=== PATIENT | male | born 1950 | race Caucasian/White ===

== ENCOUNTER 2016-10-24 08:51 | Inpatient (IN) | payer OTHER ==
[2016-10-24] MEDS ORDERED: CEFAZOLIN 1 GM VIAL ONE (09:34)
[2016-10-24 09:38] LABS: BLOOD UREA NITROGEN 16 MG/DL (9-20); CALCULATED OSMOLALITY 270 MOs/Kg (270-290); CHLORIDE 100 mEq/L (98-107); GLUCOSE 106 mg/dL (70-99); SODIUM LEVEL 140 mEq/L (137-146)
[2016-10-24] MEDS ORDERED: ONDANSETRON HCL 4 MG ODT TAB PO PRN (09:41)
[2016-10-24] MEDS ORDERED: LABETALOL 20 MG/4 ML SYRINGE IV PRN (09:41)
[2016-10-24] MEDS ORDERED: MEPERIDINE 25 MG/ML TUBEX IV PRN (09:41)
[2016-10-24] MEDS ORDERED: FENTANYL 100 MCG/2 ML VIAL IV PRN ×2 (09:41)
[2016-10-24] MEDS ORDERED: ONDANSETRON HCL 4 MG/2 ML VIAL IV PRN ×2 (09:41→12:43)
[2016-10-24] MEDS ORDERED: hydrALAZINE 20 MG/ML VIAL IV PRN (09:41)
[2016-10-24] MEDS ORDERED: HYDROmorphone 1 MG INJECTION IV PRN ×3 (09:41→12:43)
--- NOTE | 2016-10-24 09:55 | HIM.ANES ---
Anesthesia Evaluation & Plan Diagnoses: UNILATERAL PRIMARY OSTEOARTHRITIS, LEFT KNEE (10/24/16) Consented Procedure: LEFT TOTAL KNEE ARTHROPLASTY - Focused Review of Systems Cardiac History: Yes: Hx Hypertension, Hx Afib/Aflutter (RESOLVED), Hx Cardiac Disorders, Hx Abnormal Cholesterol/Hyperlipidemia HEENT: Yes: Hx Vision Problem (PRESCRIPTION GLASSES FOR DRIVING), Other HEENT Problems Hx Other HEENT Surgery: LEFT EYE SX TO CORRECT LAZY EYE 10/1996 Hx Other HEENT Problems: SEASONAL ALLERGIES Gastrointestinal: Yes: Hx Gastroesophageal Reflux Disease (USES PROTONIX NEEDED), Hx Colonoscopy (2012 NORMAL) Neurological/Musculoskeletal: No: Hx Neurological Disorders Psychological: Yes Hx Anxiety, Yes Hx Depression, Yes Hx Mental/Emotional Disorders Blood/Autoimmune: No: Hx AIDS, Hx Hepatitis (type) Smoking Status: Never smoker Surgical History: Yes: Knee (LT MENISCUS REPAIR 01/2016) Other Surgical History: LEFT EYE SX TO CORRECT LAZY EYE 10/1996 - Focused Physical Exam NPO since: 10/23/16 2100 Mallampati: Class II Thyromental Distance: Greater than 3 Neck: Full Range of Motion Dental: Normal - no significant findings Cardiovascular/Chest: Normal Respiratory: Lungs clear Any problems with anesthesia, including nausea and vomiting?: No Any relatives with a history of Malignant Hyperthermia?: No Does the patient have a history of Motion Sickness-: Yes Other: CBC/BMP/Other 10/24/16 09:12 Allergies Allergy/AdvReac Type Severity Reaction Status Date / Time celecoxib [From Celebrex] Allergy A-FIB Verified 10/24/16 09:39 codeine Allergy Nausea/Vomi Verified 10/24/16 09:39 ting meloxicam [From Mobic] Allergy AFIB Verified 10/24/16 09:39 Home Medications Medication Instructions Recorded Last Taken Type Doxycycline Hyclate [Vibramycin] 100 mg PO .EVERYOTHERDAY 01/25/16 09/28/16 History Ibuprofen Tablet [Motrin] 800 mg PO TID PRN 01/25/16 Unknown History Pantoprazole Sodium [Protonix] 40 mg PO DAILY PRN 01/25/16 Unknown History Aspirin [Aspirin EC] 325 mg PO DAILY 09/29/16 Unknown History Cholecalciferol (Vitamin D3) 1,000 unit PO DAILY 09/29/16 Unknown History [Vitamin D3] Diltiazem HCl [Cardizem] 30 mg PO Q6 PRN 09/29/16 Unknown History Dutasteride/Tamsulosin HCl [Estela 1 each PO DAILY PRN 09/29/16 Unknown History 0.5-0.4 mg Capsule] Fish Oil/Dha/Epa [Fish Oil 1,200 1 each PO DAILY 09/29/16 Unknown History mg Fish Oil] Ginkgo Biloba 120 mg PO DAILY 09/29/16 Unknown History Glucosamine HCl 1,500 mg PO DAILY 09/29/16 Unknown History Hydroxytryptophan 1 tab PO BID 09/29/16 Unknown History Melatonin 6 mg PO HS 09/29/16 Unknown History Methyl B12 1 tab PO DAILY 09/29/16 Unknown History Mv-Mn/FA/Vit K/Lycop/Lut/Zeaxa 1 each PO DAILY 09/29/16 Unknown History [Ocuvite Eye + Multi Tablet] Pyridoxine HCl [Vitamin B-6] 50 mg PO BID 09/29/16 Unknown History Pyridoxine HCl [Vitamin B-6] 100 mg PO BID 09/29/16 Unknown History Red Yeast Rice 600 mg PO EVENING 09/29/16 Unknown History Saw Pegram Xtr/Zinc Picolin [Saw 320 each PO DAILY 09/29/16 Unknown History Pegram Capsule] Sero Trex 1 - 2 tab PO DAILY 09/29/16 Unknown History Tadalafil [Cialis] 5 mg PO DAILY 09/29/16 Unknown History Tadalafil [Cialis] 5 mg PO DAILY PRN 09/29/16 Unknown History Tri-Iodine 12.5 mg PO DAILY 09/29/16 Unknown History Tyrosine [l-Tyrosine] 500 mg PO DAILY 09/29/16 Unknown History Vitamin E 400 unit PO DAILY 09/29/16 Unknown History Carvedilol [Coreg] 6.25 mg PO BID 10/19/16 Unknown History Hydrochlorothiazide 12.5 mg PO DAILY 10/19/16 Unknown History Height and Weight Patient's height 5 ft 8 in Patient's weight 88.904 kg Vital Signs Temperature 97.7 F 10/24/16 09:42 Pulse Rate 80 10/24/16 09:42 Respiratory Rate 18 10/24/16 09:42 Blood Pressure 162/89 10/24/16 09:42 Pulse Oxygen Saturation 95 10/24/16 09:42 - Anesthetic Plan Anesthesia Type: General ASA Class: 2 -: I have examined this patient and reviewed the medical record. The patient has been assessed prior to anesthesia. Risks and benefits of anesthesia and anesthetic technique options have been discussed and all questions answered. The patient accepts the risk and desires me to proceed with the planned anesthetic.
[2016-10-24] MEDS ORDERED: FENTANYL 250 MCG/5 ML VIAL IV ONE (10:00)
[2016-10-24] MEDS ORDERED: hydrALAZINE 20 MG/ML VIAL IM ONE (10:00)
[2016-10-24] MEDS ORDERED: PHENYLEPHRINE 10 MG/ML VIAL IC ONE (10:00)
[2016-10-24] MEDS ORDERED: DEXAMETHASONE 4 MG/ML VIAL IV ONE (10:00)
[2016-10-24] MEDS ORDERED: ONDANSETRON HCL 4 MG/2 ML VIAL IV ONE (10:00)
[2016-10-24] MEDS ORDERED: SUCCINYLCHOLINE 20 MG/1 ML INJ 10 ML MDV IV ONE (10:00)
[2016-10-24] MEDS ORDERED: LIDOCAINE 100 MG PFS IV ONE (10:00)
[2016-10-24] MEDS ORDERED: PROPOFOL 200 MG/20 ML VIAL IV ONE (10:00)
[2016-10-24] MEDS ORDERED: BUPIVACAINE 0.5% 30 ML VIAL ONE (10:20)
[2016-10-24] MEDS ORDERED: BUPIVACAINE LIPOSOME/PF 1.3% 20 ML VIAL INF ONE (11:00)
[2016-10-24] MEDS ORDERED: TRANEXAMIC ACID 1,000 MG in NS 100 ML IV ONE (11:00)
[2016-10-24] MEDS ORDERED: DILTIAZEM 30 MG TAB PO PRN (12:41)
[2016-10-24] MEDS ORDERED: [UNRECOGNIZED DRUG - OTHER] PO PRN (12:41)
[2016-10-24] MEDS ORDERED: TAMSULOSIN HCL PO PRN (12:41)
[2016-10-24] MEDS ORDERED: DUTASTERIDE PO PRN (12:41)
[2016-10-24] MEDS ORDERED: Aluminum;Magnesium;Simethicone 30 ML UDC PO PRN (12:43)
[2016-10-24] MEDS ORDERED: MAGNESIUM HYDROXIDE 30 ML BOTTLE PO PRN (12:43)
[2016-10-24] MEDS ORDERED: OXYCODONE HCL 5 MG TABLET PO PRN (12:43)
[2016-10-24] MEDS ORDERED: DIPHENHYDRAMINE 50 MG/ML VIAL IV PRN (12:43)
[2016-10-24] MEDS ORDERED: SODIUM CHLORIDE 0.9% 3 ML FLUSH FLUSH PRN (12:43)
[2016-10-24] MEDS ORDERED: DOXYCYCLINE HYCLATE 100 MG PO SCH (12:45)
--- NOTE | 2016-10-24 12:52 | HIMOPRPT ---
PREOPERATIVE DIAGNOSIS: Left knee varus gonarthrosis POSTOPERATIVE DIAGNOSIS: Same PROCEDURE: Left total knee arthroplasty. FINDINGS: Grade 4 changes to the weight-bearing surface of the medial femoral condyle and medial tibial plateau with grade 2 and 3 changes to the medial aspect of the lateral femoral condyle and grade 3 and 4 changes to the posterior patella. SPECIMENS REMOVED: Portions of the distal femur, proximal tibia, and posterior patella. EBL: 30 mL. ANESTHESIA: General. COMPLICATIONS: None. SURGEON: Silvino Garcia MD. STOREROOM CLERK: JON Foreman. TOURNIQUET TIME: 81 minutes at 250 mmHg. IMPLANTS: Perceivant Triathlon total knee system, metallic size 6 tibial base plate ; size 6 x 11 mm polyethylene insert; 35 mm asymmetric patella button; size 5 cruciate retaining metallic femoral component. SIGNIFICANT HISTORY, INDICATIONS, AND CONSENT: Kennedy is a active 66-year-old male with longstanding history of left knee pain and swelling recalcitrant to conservative treatment secondary to osteoarthritis status post arthroscopic subtotal meniscectomy. After discussing risks, benefits, and alternatives of non -operative treatment and operative intervention, the patient wished to proceed with surgical intervention and consent was obtained with potential benefits of improved knee pain and improved function. OPERATION IN DETAIL: The patient was seen in the preop holding area. The left lower extremity was signed. Consent was reviewed, questions were answered, H and P updated. SCD was placed on the right lower extremity. The patient was taken to the operative room, placed in supine position on the operative table, anesthesia placed monitoring devices and performed intubation. Tourniquet was placed high on the left lower extremity with the left lower extremity being sterilely prepped and draped in the usual orthopedic fashion. Time-out was performed. The patient received prophylactic antibiotics. Consensus was reached amongst participants in the OR suite. Esmarch was used to exsanguinate the limb. Tourniquet raised to 250 mmHg. Standard anterior approach to the knee was performed incising sharply through skin and then performed a medial parapatellar arthrotomy. The superficial MCL was carefully released subperiosteally of the proximal tibia medially. We then released anterior soft tissue structures, everted the patella and gently flexed the knee, being careful to avoid injury to the patellar tendon distally. Next, intramedullary guide was placed within the femur intramedullary canal. We then performed a distal femoral cut removing 8 mm, 5 degrees valgus. After a distal cut was made, this was sized using a posterior condyle referencing system to be a size 5 femur, size 5 cutting block was placed and distal femoral cuts were made in standard fashion. ACL was removed and PCL gently retracted. Grade 4 changes to the medial and portions of the patella femoral compartment with grade 2 changes to the medial aspect of the lateral femoral condyle.. Extramedullary guide was placed for a tibial cut, which was perpendicular to the tibia and in line with the tibial crest. Once this was placed, we removed 9 from the high side with 2 mm removed from the more worn plateau. After tibial cut was made, we checked our alignment and found this to be quite appropriate. We then performed flexion-extension gap measuring, and again addressed our soft tissue balancing to appropriately balance the knee. We decided removed 2 mm more of proximal tibia secondary to some tightness in flexion. This improved our extension flexion gap however patient was still a little tight in flexion. We freehanded a small cut involving the posterior condyle to improve her flexion extension gaps. Once these were symmetric we proceeded. Our tibial baseplate was sized and rotated in line with the medial 1/3 of the tibial tubercle. This was provisionally pinned and attention turned to our patella cut. Our patella was then sized, removing approximately 8 mm of bone after measuring 24 mm. 14-16 remained, this was sized to a 35 mm patella and the patella was drilled. Components were placed and provisional implants were found to be acceptable in regards to range of motion and ligamentous stability throughout the motion arc. We then performed our fin cut and drilled our femoral implant. Provisional implants were then removed. The cut surfaces were then thoroughly irrigated and dried for cementation. Cementation was being mixed on the back table while we injected Exparel within the deep structures of the knee being careful to aspirate prior to injection. 0.25% Marcaine was also injected at this time in standard fashion. We then began cementation of our tibial, femoral, and patellar components in standard fashion. After these were cemented and held until cement had hardened, excess cement was removed. Range of motion and stability were found to be appropriate. We then allowed tourniquet to be released and immaculate hemostasis was performed with Bovie cautery. Medial parapatellar arthrotomy was closed at the superomedial border of the patella with #1 Ethibond in an interrupted fashion. The remainder of the arthrotomy closed with #1 barbed PDS in a watertight closure. We used 2-0 Vicryl for subcutaneous closure and he for skin. Sterile soft tissue dressing was placed. The patient was placed in the KIKO hose aroused by Anesthesia and taken to postanesthesia care in stable condition. PLAN: The patient will be admitted to Orthopedic Service. Begin CPM in the PACU. Radiographs will be taken in the PACU. 24 hours perioperative antibiotics will be given with 14 days of DVT chemoprophylaxis, and physical therapy beginning this evening
[2016-10-24] MEDS ORDERED: Pharmacy Discontinue All Previous Acetaminophen Orders SCH (13:00)
[2016-10-24] MEDS ORDERED: SODIUM CHLORIDE 0.9% 3 ML FLUSH FLUSH SCH (13:00)
[2016-10-24] MEDS ORDERED: NALOXONE 0.4 MG/ML AMPULE IV SCH (13:00)
[2016-10-24] MEDS ORDERED: DUTASTERIDE 0.5 MG CAP PO PRN (13:12)
[2016-10-24] MEDS ORDERED: TAMSULOSIN HCL 0.4 MG CAP PO PRN (13:13)
--- NOTE | 2016-10-24 13:38 | SC.ANESPOS ---
Post-Anesthesia Note LOC: Fully Awake Post-Anesthesia Assessment: Awake, Returned to Baseline, Hemodynamically Stable , Pain Control Adequate Phase I & II Recovery Complete: Yes Apparent Anesthesia Complication: No : N - Vital Signs Blood Pressure: 155/78 Pulse: 90 Resp Rate: 18 O2 Sat: 100 Temp: 97.8 F
[2016-10-24] MEDS: HYDROmorphone 1 MG INJECTION IV PRN ×2 (14:00→19:08)
[2016-10-24] MEDS: ACETAMINOPHEN 325 MG/TAB TABLET PO SCH ×2 (14:01→21:24)
--- NOTE | 2016-10-24 14:05 | DIRPT ---
CLINICAL DATA: Status post elective knee replacement. EXAM: PORTABLE LEFT KNEE - 1-2 VIEW COMPARISON: None. FINDINGS: Status post total left knee arthroplasty. Hardware appears intact and well positioned. No surgical complicating feature seen. Expected postsurgical changes within the surrounding soft tissues. IMPRESSION: Surgical changes of left knee arthroplasty. No surgical complicating feature seen. Electronically Signed By: Fede Vanessa M.D. On: 10/24/2016 14:03
[2016-10-24] MEDS: Cefazolin 2gm/50 ml D5W 2 GM/50 ML RTU IV SCH (16:03)
[2016-10-24] MEDS: SODIUM CHLORIDE 0.9% 3 ML FLUSH FLUSH SCH (17:38)
[2016-10-24] MEDS: Aspirin (Orange Enteric Coated) 325 mg tab PO SCH (17:39)
[2016-10-24] MEDS: PANTOPRAZOLE 40 MG TAB PO SCH (17:40)
[2016-10-24] MEDS: TAPENTADOL HCL 50 MG TAB PO PRN (17:47)
[2016-10-24] MEDS ORDERED: Vaccine Screening Complete SCH (19:00)
[2016-10-24] MEDS ORDERED: PYRIDOXINE HCL 50 MG PO SCH (21:00)
[2016-10-24] MEDS ORDERED: PYRIDOXINE HCL 100 MG PO SCH (21:00)
[2016-10-24] MEDS: DOCUSATE-SENNA CONCENTRATE TAB PO SCH (21:24)
[2016-10-24] MEDS: PYRIDOXINE 50 MG TAB PO SCH (21:24)
[2016-10-24] MEDS: CARVEDILOL 6.25 MG TAB PO SCH (21:24)
[2016-10-25] MEDS: DIPHENHYDRAMINE 25 MG CAP PO PRN ×2 (00:34→21:47)
[2016-10-25] MEDS: HYDROmorphone 1 MG INJECTION IV PRN ×4 (00:34→21:08)
[2016-10-25] MEDS: Cefazolin 2gm/50 ml D5W 2 GM/50 ML RTU IV SCH ×2 (00:35→07:51)
[2016-10-25] MEDS: PANTOPRAZOLE 40 MG TAB PO SCH ×2 (05:33→17:03)
[2016-10-25] MEDS: ACETAMINOPHEN 325 MG/TAB TABLET PO SCH ×3 (05:33→20:23)
[2016-10-25] MEDS: SODIUM CHLORIDE 0.9% 3 ML FLUSH FLUSH SCH ×2 (05:33→17:05)
[2016-10-25 06:19] VITALS: BMI 30.2
--- NOTE | 2016-10-25 06:53 | PCM.ORTHBL ---
- Subjective Hospital Day #: 2 Post Op Day: 1 (s/p L TKA ) Daily Assessment - Patient: Reports: No new complaints, Awake Alert Oriented x4 , Pain is less, Tolerating Regular Diet, Afebrile, Ambulating with Physical Therapist - Objective / Physical Exam Vital Signs: Temperature: 98.2 F (10/25/16 06:00) HR: 91 (10/25/16 06:00)RR: 18 (10/25/16 06: 00) BP: 156/76 (10/25/16 06:00)Pulse Ox: 96 (10/25/16 06:00) General: Alert, Oriented x3, Cooperative, No acute distress Musculoskeletal / Extremities: 2 plus Dorsalis Pedis Pulse, Dressing Clean/Dry/ Intact, Tenderness, Swelling Neurological: Positive Sensation First Dorsal Web Space, Sensation to light touch intact, Extensor Hallicus Longus Intact, Flexor Hallicus Longus Intact, Dorsiflexion Intact, Plantarflexion Intact Skin: Warm,Dry and Intact Laboratory/Diagnostics Reviewed: Laboratory Results - last 24 hr 10/24/16 10/24/16 09:12 09:12 Sodium 140 Potassium 3.8 Chloride 100 Carbon Dioxide 30 Anion Gap 14 BUN 16 Creatinine 1.00 Estimated GFR (MDRD) > 60 Glucose 106 H Calculated Osmolality 270 Calcium 10.0 Blood Type B NEGATIVE Antibody Screen Negative - Assessment and Plan (1) Status post total left knee replacement using cement Acute Z96.652 - PRESENCE OF LEFT ARTIFICIAL KNEE JOINT Present on Admission: No Comment/Plan: POD #1 s/p L TKA doing well. PT/OT today - work on knee extension. DVT ppx with ASA 325mg po BID x 14 days post op. Pain control, ice, elevation. Dispo planning , likely home tomorrow with home health.
--- NOTE | 2016-10-25 06:56 | PCM.DCS92 ---
- Final/Secondary Discharge Diagnosis (1) Status post total left knee replacement using cement Acute Z96.652 - PRESENCE OF LEFT ARTIFICIAL KNEE JOINT Present on Admission: No Discharge Disposition: Discharge w/ Home Health Discharge Condition: Stable Cognitive Discharge Status: Unimpaired Fuctional Discharge Status: Recent lower extremety joint replacement Home Medications/ New Prescriptions: New Aspirin (OrangeEnteric Coated) [Ecotrin] 325 mg PO BIDWM #30 tablet Docusate-Senna Concentrate [Senokot S or Belkys Colace] 2 tab PO HS #90 tablet Ondansetron HCl [Zofran] 4 mg PO Q6 PRN #30 tablet PRN Reason: WITH OXYCODONE Tapentadol HCl [Nucynta Ext Release] 50 mg PO BID PRN #60 tab PRN Reason: Moderate/severe pain Alternate Continue Pantoprazole Sodium [Protonix] 40 mg PO DAILY PRN PRN Reason: Acid Reflux Doxycycline Hyclate [Vibramycin] 100 mg PO .EVERYOTHERDAY Diltiazem HCl [Cardizem] 30 mg PO Q6 PRN PRN Reason: ATRIAL FIBRILATION Dutasteride/Tamsulosin HCl [Estela 0.5-0.4 mg Capsule] 1 each PO DAILY PRN PRN Reason: PROSTATE ENLARGEMENT Saw Blaine Xtr/Zinc Picolin [Saw Blaine Capsule] 320 each PO HS Methyl B12 1 tab PO HS Hydroxytryptophan 1 tab PO BID Pyridoxine HCl [Vitamin B-6] 100 mg PO BID Mv-Mn/FA/Vit K/Lycop/Lut/Zeaxa [Ocuvite Eye + Multi Tablet] 1 each PO HS Fish Oil/Dha/Epa [Fish Oil 1,200 mg Fish Oil] 1 each PO HS Vitamin E 400 unit PO HS Tyrosine [l-Tyrosine] 500 mg PO HS Glucosamine HCl 1,500 mg PO HS Ginkgo Biloba 120 mg PO HS Red Yeast Rice 600 mg PO HS Tri-Iodine 12.5 mg PO HS Sero Trex 1 - 2 tab PO HS Carvedilol [Coreg] 3.125 mg PO QAM Hydrochlorothiazide 12.5 mg PO DAILY Carvedilol 6.25 mg PO .QEVENING Alprazolam [Xanax] 0.5 mg PO TID PRN PRN Reason: Anxiety Discontinued Ibuprofen Tablet [Motrin] 800 mg PO TID PRN PRN Reason: Pain Aspirin [Aspirin EC] 325 mg PO DAILY Discharge Home Medication List Doxycycline Hyclate [Vibramycin] 100 mg PO .EVERYOTHERDAY 01/25/16 [History Confirmed 10/24/16 Last Taken 10/23/16 07:00] Pantoprazole Sodium [Protonix] 40 mg PO DAILY PRN 01/25/16 [History Confirmed Last Taken 10/23/16] Diltiazem HCl [Cardizem] 30 mg PO Q6 PRN 09/29/16 [History Confirmed 10/24/16 Last Taken Unknown] Dutasteride/Tamsulosin HCl [Estela 0.5-0.4 mg Capsule] 1 each PO DAILY PRN [History Confirmed 10/24/16 Last Taken Unknown] Fish Oil/Dha/Epa [Fish Oil 1,200 mg Fish Oil] 1 each PO HS 09/29/16 [History Confirmed 10/24/16 Last Taken 8 Days Ago] Ginkgo Biloba 120 mg PO HS 09/29/16 [History Confirmed 10/24/16 Last Taken 8 Days Ago] Glucosamine HCl 1,500 mg PO HS 09/29/16 [History Confirmed 10/24/16 Last Taken 10/23/16 19:00] Hydroxytryptophan 1 tab PO BID 09/29/16 [History Confirmed 10/24/16 Last Taken 8 Days Ago] Methyl B12 1 tab PO HS 09/29/16 [History Confirmed 10/24/16 Last Taken 10/23/16 07:00] Mv-Mn/FA/Vit K/Lycop/Lut/Zeaxa [Ocuvite Eye + Multi Tablet] 1 each PO [History Confirmed 10/24/16 Last Taken 10/23/16 19:00] Pyridoxine HCl [Vitamin B-6] 100 mg PO BID 09/29/16 [History Confirmed 10/24/16 Last Taken 8 Days Ago] Red Yeast Rice 600 mg PO HS 09/29/16 [History Confirmed 10/24/16 Last Taken 03/03 19:00] Saw Blaine Xtr/Zinc Picolin [Saw Blaine Capsule] 320 each PO HS 09/29/16 [ History Confirmed 10/24/16 Last Taken 8 Days Ago] Sero Trex 1 - 2 tab PO HS 09/29/16 [History Confirmed 10/24/16 Last Taken 8 Days Ago] Tri-Iodine 12.5 mg PO HS 09/29/16 [History Confirmed 10/24/16 Last Taken 19:00] Tyrosine [l-Tyrosine] 500 mg PO HS 09/29/16 [History Confirmed 10/24/16 Last Taken 10/23/16 19:00] Vitamin E 400 unit PO HS 09/29/16 [History Confirmed 10/24/16 Last Taken 8 Days Ago] Carvedilol [Coreg] 3.125 mg PO QAM 10/19/16 [History Confirmed 10/24/16 Last Taken 10/24/16 07:50] Hydrochlorothiazide 12.5 mg PO DAILY 10/19/16 [History Confirmed 10/24/16 Last Taken 10/23/16 19:00] Alprazolam [Xanax] 0.5 mg PO TID PRN 10/24/16 [History Confirmed 10/24/16 Last Taken 10/23/16] Carvedilol 6.25 mg PO .QEVENING 10/24/16 [History Confirmed 10/24/16 Last Taken 10/23/16 19:00] Aspirin (OrangeEnteric Coated) [Ecotrin] 325 mg PO BIDWM #30 tablet 10/26/16 [ Rx Last Taken Unknown] Docusate-Senna Concentrate [Senokot S or Belkys Colace] 2 tab PO HS #90 tablet 06/03 [Rx Last Taken Unknown] Ondansetron HCl [Zofran] 4 mg PO Q6 PRN #30 tablet 10/26/16 [Rx Last Taken Unknown] Tapentadol HCl [Nucynta Ext Release] 50 mg PO BID PRN #60 tab 10/26/16 [Rx Last Taken Unknown] Diet at Discharge: Regular Activity: Limited, No Driving Call Office For: Worsening Symptoms, Wound is Draining Pus, Fever over 101 F, Pain Uncontrolled By Meds Discontinue use of:: Alcohol, All Illegal Substances, All Types of Tobacco - DC Summary Notes Hospital Course Note:: Discharge summary on patient named EWELINA WALLACE admitted to [facility] on 10/24/16 by Silvino Garcia MD. Date of discharge is [10/26/2016]. HPI: 66-year-old male with longstanding history of left knee pain secondary to underlying osteoarthritis having failed outpatient conservative treatment including steroid injections, aspiration, viscous supplement, anti-inflammatory apxa-ble-vbjncza, Tylenol, and arthroscopic meniscectomy. Patient elected to have left total knee arthroplasty. Hospital course: Postoperatively patient was transferred to [facility] where physical therapy was started postop day 0 and pain was controlled with IV and oral medications. Bowel bladder function intact with diet advanced. Patient doing well physical therapy on postop day 1 and 2 and wished to be discharged home with home health. Discharge instructions: Prescriptions provided for aspirin 325 mg p.o. b.i.d. times 14 days postoperatively, stool softener take as directed, Nucynta 50 mg 1 p.o. q.12 hours for pain, and Zofran 4 mg ODT p.r.n. nausea q.6 hours. Dressing to remain clean dry and intact and will be removed at follow-up in the office which is already scheduled with Dr. Garcia. Contact our office with any questions or concerns. Wound Care May Shower Starting:: POST OP DAY #3 as long as dressing stays dry. Medication Instructions: Rx on Chart Continue Ice Packs/Ice Machine to Operative Area: Yes Activity as Tolerated: Yes Weight Bearing: Full Current Dressing: Aquacel Dressing Care: Keep Wound Clean & Dry, No Tub Baths, Do Not Change Dressing - Consults/Home Health Outpatient Consults: Home Health - Physical Exam Vital Signs: Initial Vitals Temperature 97.7 F 10/24/16 09:42 Pulse Rate 80 10/24/16 09:42 Respiratory Rate 18 10/24/16 09:42 Blood Pressure 162/89 10/24/16 09:42 Pulse Oxygen Saturation 95 10/24/16 09:42
[2016-10-25 07:11] LABS: MPV 8.3 fL (7.4-10.4)
[2016-10-25 07:22] LABS: BLOOD UREA NITROGEN 13 MG/DL (9-20); CALCIUM 9.8 MG/DL (8.4-10.2); CALCULATED OSMOLALITY 272 MOs/Kg (270-290); CHLORIDE 102 mEq/L (98-107); GLUCOSE 114 mg/dL (70-99); SODIUM LEVEL 141 mEq/L (137-146)
[2016-10-25] MEDS: Aspirin (Orange Enteric Coated) 325 mg tab PO SCH ×2 (07:51→17:03)
[2016-10-25] MEDS ORDERED: Remove Transdermal Scopolamine Patch after 24 hours ONE (08:00)
[2016-10-25] MEDS ORDERED: DOXYCYCLINE 100 MG/TAB PO SCH (09:00)
[2016-10-25] MEDS ORDERED: METHYL B12 PO SCH (09:00)
[2016-10-25] MEDS: CARVEDILOL 3.125 MG TAB PO SCH (09:48)
[2016-10-25] MEDS: PYRIDOXINE 50 MG TAB PO SCH ×2 (09:49→20:23)
[2016-10-25] MEDS: HYDROCHLOROTHIAZIDE 12.5 MG CAP PO SCH (09:49)
[2016-10-25] MEDS: VITAMINS, MULTIPLE CAP PO SCH (11:50)
[2016-10-25] MEDS ORDERED: VITAMINS, MULTIPLE CAP PO SCH (12:00)
[2016-10-25] MEDS: ONDANSETRON HCL 4 MG ODT TAB PO PRN (16:29)
[2016-10-25] MEDS: OXYCODONE HCL 5 MG TABLET PO PRN ×2 (17:03→17:59)
[2016-10-25] MEDS: TAPENTADOL HCL 50 MG TAB PO PRN (20:11)
[2016-10-25] MEDS: CARVEDILOL 6.25 MG TAB PO SCH (20:23)
[2016-10-25] MEDS: DOCUSATE-SENNA CONCENTRATE TAB PO SCH (20:24)
[2016-10-26] MEDS: HYDROmorphone 1 MG INJECTION IV PRN ×3 (02:54→12:37)
[2016-10-26] MEDS: PANTOPRAZOLE 40 MG TAB PO SCH (04:47)
[2016-10-26] MEDS: ACETAMINOPHEN 325 MG/TAB TABLET PO SCH ×2 (04:47→12:38)
[2016-10-26] MEDS: SODIUM CHLORIDE 0.9% 3 ML FLUSH FLUSH SCH (04:49)
[2016-10-26 07:08] LABS: MPV 8.8 fL (7.4-10.4)
--- NOTE | 2016-10-26 07:47 | PCM.ORTHBL ---
- Subjective Hospital Day #: 3 Post Op Day: 2 (s/p L TKA ) Daily Assessment - Patient: Reports: Awake Alert Oriented x4, Still having pain , Tolerating Regular Diet, Afebrile, Ambulating with Physical Therapist - Objective / Physical Exam Vital Signs: Temperature: 99.9 F (10/26/16 06:00) HR: 105 (10/26/16 06:00)RR: 20 (10/26/16 06 :00) BP: 165/83 (10/26/16 06:00)Pulse Ox: 93 (10/26/16 06:00) General: Alert, Oriented x3, Cooperative, No acute distress Musculoskeletal / Extremities: 2 plus Dorsalis Pedis Pulse, Dressing Clean/Dry/ Intact, Swelling Neurological: Positive Sensation First Dorsal Web Space, Sensation to light touch intact, Extensor Hallicus Longus Intact, Flexor Hallicus Longus Intact, Dorsiflexion Intact, Plantarflexion Intact Skin: Warm,Dry and Intact Laboratory/Diagnostics Reviewed: Laboratory Results - last 24 hr 10/26/16 05:00 WBC 17.3 H RBC 4.38 L Hgb 14.8 Hct 43.5 MCV 99 H MCH 33.9 H MCHC 34.0 RDW 14.0 Plt Count 211 MPV 8.8 - Assessment and Plan (1) Status post total left knee replacement using cement Acute Z96.652 - PRESENCE OF LEFT ARTIFICIAL KNEE JOINT Present on Admission: No Comment/Plan: POD #2 s/p L TKA doing well. Plan for d/c home today with home health. Rx on chart. PT/OT WBAT LLE with TKA protocol. ASA 325 mg po BID x 14 days post op. Follow up in clinic as scheduled.
[2016-10-26] MEDS: Aspirin (Orange Enteric Coated) 325 mg tab PO SCH (08:54)
[2016-10-26] MEDS: PYRIDOXINE 50 MG TAB PO SCH (08:54)
[2016-10-26] MEDS: HYDROCHLOROTHIAZIDE 12.5 MG CAP PO SCH (08:54)
[2016-10-26] MEDS: CARVEDILOL 3.125 MG TAB PO SCH (08:54)
[2016-10-26] MEDS: ONDANSETRON HCL 4 MG ODT TAB PO PRN (09:01)
[2016-10-26] MEDS: TAPENTADOL HCL 50 MG TAB PO PRN (09:01)
[2016-10-26] MEDS: VITAMINS, MULTIPLE CAP PO SCH (12:11)
[2016-10-26 15:00] VITALS: BP 140/74; PULSE 109; TEMP 100.5
== END 2016-10-26 15:53 | disposition home health service (06) | DRG 470 ==
LOC: SDC 08:51 → MPS3 13:49
PROVIDERS: ADMIT Orthopaedic Surgery; ATTEND Orthopaedic Surgery
PROC: 0SRD0J9 Replacement of Left Knee Joint with Synthetic Substitute, Cemented, Open Approach (ICD-10-PCS; principal; 2016-10-24 10:25)
DX: M17.12 Unilateral primary osteoarthritis, left knee (principal); I48.91 Unspecified atrial fibrillation; I10 Essential (primary) hypertension; Z88.5 Allergy status to narcotic agent; K21.9 Gastro-esophageal reflux disease without esophagitis; F41.9 Anxiety disorder, unspecified; Z87.891 Personal history of nicotine dependence; Z79.82 Long term (current) use of aspirin
CPT/HCPCS: 80048; 85027; 86850; 86900; 86901; 97161; 97165; C9290; G0237; J0330; J0360; J0690; J1100; J1170; J2001; J2370; J2405; J3010; J3490; J7030